=== PATIENT | female | born 1955 | race Caucasian/White ===

== ENCOUNTER → 2017-03-10 | Outpatient (CLI) | payer BC | LOC: HEART 5 09:57 | DX: I49.9 Cardiac arrhythmia, unspecified (principal) ==

== ENCOUNTER → 2021-02-22 | Outpatient (CLI) | payer MEDICARE ==
[~2021-02-22] MED LIST: ASPIRIN EC81 MG PO; BUSPAR 10MG10 MG PO; CLOPIDOGREL75 MG NG; COZAAR100 MG PO; DEXILANT60 MG PO; ENTRESTO 24 MG1 EACH PO; FERROUS SULFAT325 M2 PO; KLONOPIN TAB 00.5 MG PO; LEVOCETIRIZINE D5 MG PO; LIPITOR TAB 2020 MG PO; LOPRESSOR 25 MG25 MG PO; NIACIN ER1000 MG PO; PROTONIX40 MG PO; RESTORIL 15 MG15 MG PO; SYNTHROID75 MCG PO; THERAGRAN M TAB1 EA PO; TRICOR145 MG PO; WELLBUTRIN SR150 M1 PO; ZOLOFT50 MG PO; ZYPREXA10 MG PO
== END ==
LOC: EMI 10:25
DX: R41.3 Other amnesia (principal); G31.89 Other specified degenerative diseases of nervous system
CPT/HCPCS: 70551